=== PATIENT | female | born 1995 | race Caucasian/White ===

== ENCOUNTER 2024-03-26 13:18 | Outpatient (CLI) | payer MEDICAID, SELFPAY ==
--- NOTE | 2024-03-26 13:23 | MM_ITS ---
WS: [id number] RIGHT DIGITAL TOMOSYNTHESIS MAMMOGRAPHY WITH CAD. RIGHT breast ultrasound, limited HISTORY: LESION OF SKIN OF BREAST COMPARISON: None available. Technique: CC, MLO and ML views. Spot compression RIGHT CC. Breast composition: There are scattered areas of fibroglandular density. Marker is placed over the lateral RIGHT breast near 9:00. There is no underlying mass identified or d istortion. The area of concern is superficial. RIGHT breast ultrasound, limited. Superficial complex collection in the subcu soft tissue measures 2.8 x 2.1 x 0.3 cm. Very minimal per ipheral vascularity. This is not within the breast. This is within the epidermis. Most consistent wit h a sebaceous cyst. MM/MM diag RT tomosynthesis [id number] IMPRESSION: BI-RADS: 2 - Benign. FOLLOW UP: Age 39 The superficial palpable abnormality is consistent with a small sebaceous cyst.
--- NOTE | 2024-03-26 13:55 | US_ITS ---
WS: [id number] RIGHT DIGITAL TOMOSYNTHESIS MAMMOGRAPHY WITH CAD. RIGHT breast ultrasound, limited HISTORY: LESION OF SKIN OF BREAST COMPARISON: None available. Technique: CC, MLO and ML views. Spot compression RIGHT CC. Breast composition: There are scattered areas of fibroglandular density. Marker is placed over the lateral RIGHT breast near 9:00. There is no underlying mass identified or d istortion. The area of concern is superficial. RIGHT breast ultrasound, limited. Superficial complex collection in the subcu soft tissue measures 2.8 x 2.1 x 0.3 cm. Very minimal per ipheral vascularity. This is not within the breast. This is within the epidermis. Most consistent wit h a sebaceous cyst. US/US breast RT limited* [id number] IMPRESSION: BI-RADS: 2 - Benign. FOLLOW UP: Age 39 The superficial palpable abnormality is consistent with a small sebaceous cyst.
== END 2024-03-26 13:19 | disposition home or self-care (01) ==
LOC: RAD 13:20
PROVIDERS: Visit Provider Nurse Practitioner Family
DX: N60.81 Other benign mammary dysplasias of right breast (principal); R92.323 Mammographic fibroglandular density, bilateral breasts
CPT/HCPCS: 76642; 77061; 77062; G0279